=== PATIENT | male | born 1975 | race Caucasian/White ===

== ENCOUNTER → 2017-03-17 | Day surgery (SDC) | payer OTHER ==
[~2017-03-17] MED LIST: Acetaminophen/oxyCODONE 325-5 MG Tab PO PRN; Clindamycin Phosphate 900 MG in Dextrose 5% in Water 100 ML IV ONE; Clindamycin Phosphate 900 MG in Sodium Chloride 0.9% 100 ML IV ONE; Dexamethasone 4 MG/ML 5 ML MDV ONE; Doxycycline 100 MG Cap PO ONE; Famotidine 20 MG/2 ML SDV IVPUSH ONE; HYDROmorphone 0.5 MG/0.5 ML Syringe IVPUSH PRN; HYDROmorphone 1 MG/ML Syringe IVPUSH ONE; HYDROmorphone 1 MG/ML Syringe ONE; Haloperidol Lactate 5 MG/ML SDV IVPUSH ONE; Iodine/Sodium Iodide 2% Tincture 30 ML Bottle ONE; Ketorolac 30 MG/ML SDV IVPUSH PRN; Lidocaine 1% 4 ML ONE; Metoclopramide 10 MG/2 ML SDV IVPUSH ONE; Midazolam 1 MG/ML 2 ML SDV ONE; Morphine 15 MG Tab.ER PO ONE; Morphine 15 MG Tab.ER PO SCH; Ondansetron 4 MG/2 ML SDV IVPUSH PRN; Ondansetron 4 MG/2 ML SDV ONE; Propofol 200 MG/20 ML SDV ONE; Sodium Chloride 0.9% 1,000 ML IV SCH; Succinylcholine 200 MG/10 ML MDV ONE; ceFAZolin 1 GM Vial ONE; cefTRIAXone 2 GM in Sodium Chloride 0.9% 100 ML IV ONE; fentaNYL 100 MCG/2 ML SDV ONE
--- NOTE | 2017-03-17 10:35 | EDM.PDOC ---
ED HPI GENERAL MEDICAL PROBLEM - General Chief Complaint: Upper Extremity Injury/Pain Stated Complaint: STICK UNDER SKIN OF HAND/SWELLING Time Seen by Provider: 03/17/17 10:34 Source of Information: Reports: Patient History Limitations: Reports: No Limitations - History of Present Illness INITIAL COMMENTS - FREE TEXT/NARRATIVE: 41-year-old male reports to the ED with marked swelling and pain in his right hand over the thenar eminence. He reports that she's been out camping. States he stepped on a twig was able to get that out of his foot. He then fell forwards onto branches and legs with a puncture wound to the volar aspect of the thenar eminence right hand. Socially the areas become markedly swollen with erythema now spreading up the hand to towards his axilla. Is there may be a foreign body embedded in his thenar eminence. He has no systemic signs of illness such as fever chills nausea or vomiting. Pain in his hand is constant and throbbing. Patient states he has no allergies. His tetanus toxoid is up-to- date. Onset: Sudden (J occurred over 48 hours ago.) Onset Date: 03/15/17 Duration: Day(s): Location: Reports: Upper Extremity, Right (Primary thenar eminence of his right hand with a puncture wound mid thenar eminence with development of cellulitis lymphangitis right hand. This cellulitis is traveling up towards his left axilla.) Quality: Reports: Ache, Throbbing Severity: Moderate Improves with: Reports: None Worsens with: Reports: Other (Symptoms of worsened overnight with increased swelling of the thenar eminence and now red streaks going up the volar aspect of his arm to the axilla.) Context: Reports: Trauma (Tripped and fell on sharp objects which included pine needle branches and tree branches.) Associated Symptoms: Reports: No Other Symptoms, Other (He has some other aches and pains in his left ribs from falling out of a boat onto a concrete pier. He did not wish to have those problems addressed at this time) Treatments CREDIT REPORT CHECKER: Reports: Other (see below) Right Hand Pain Score (Numeric/FACES): 9 - Related Data Allergies Allergy/AdvReac Type Severity Reaction Status Date / Time No Known Allergies Allergy Verified 08/23/16 07:50 Home Meds: Home Meds . [No Known Home Meds] 03/17/17 [History] Past Medical History Cardiovascular History: Reports: Hypertension Respiratory History: Reports: Bronchitis, Recurrent Musculoskeletal History: Reports: Fracture Psychiatric History: Reports: Anxiety, Depression Other Dermatologic History: Current rash - Infectious Disease History Infectious Disease History: Reports: Chicken Pox - Past Surgical History HEENT Surgical History: Reports: Eye Surgery Social & Family History - Family History Family Medical History: Noncontributory - Tobacco Use Smoking Status *Q: Light Tobacco Smoker Years of Tobacco use: 30 Packs/Tins Daily: 1 - Caffeine Use Caffeine Use: Reports: Energy Drinks - Recreational Drug Use Recreational Drug Use: No - Living Situation & Occupation Occupation: Employed Review of Systems - Review of Systems Review Of Systems: See Below Constitutional: Denies: Chills, Diaphoresis, Fever, Weakness, Other Eyes: Reports: No Symptoms Ears: Reports: No Symptoms Nose: Reports: No Symptoms Mouth/Throat: Reports: No Symptoms Respiratory: Reports: No Symptoms Cardiovascular: Reports: No Symptoms GI/Abdominal: Reports: No Symptoms Genitourinary: Reports: No Symptoms Musculoskeletal: Reports: Other (Swelling and development of lymphangitis cellulitis ) Skin: Reports: Other (Erythema swelling and pain thenar eminence right hand with lymphangitis erythema spreading up the volar aspect of his forearm and arm towards the axilla.) Neurological: Reports: No Symptoms Psychiatric: Reports: No Symptoms ED EXAM, GENERAL - Physical Exam Exam: See Below Exam Limited By: No Limitations General Appearance: Alert, WD/WN, No Apparent Distress Eye Exam: Bilateral Eye: Normal Inspection Peripheral Pulses: 3+: Radial (L), Radial (R) Extremities: Other (Patient has a single puncture wound mid thenar eminence volar hand on the right side. The thenar eminence itself is taught with swelling and is tender and warm to palpation. There is erythema spreading from the thenar eminence of the volar aspect of the arm towards the axilla. He does travel up the medial arm.) Neurological: Alert ( He denies any systemic symptoms.), Oriented, CN II-XII Intact, Normal Cognition Psychiatric: Normal Affect, Normal Mood Skin Exam: Warm, Dry, Intact, Normal Color, Erythema Course - Vital Signs Last Recorded V/S: Last Vital Signs Temp 36.9 C 03/17/17 18:30 Pulse 88 03/17/17 18:30 Resp 11 L 03/17/17 18:30 BP 143/103 H 03/17/17 18:30 Pulse Ox 95 03/17/17 18:30 - Orders/Labs/Meds Orders: Active Orders 24 hr Category Date Time Status Admission Status [Patient Status] [ADT] Routine ADT 03/17/17 15:02 Active Communication Order [RC] ASDIRECTED Care 03/17/17 15:28 Active Communication Order [RC] ROUTINE Care 03/17/17 16:40 Active Cooling Warming Measures [RC] ASDIRECTED Care 03/17/17 16:40 Active Elevate Extremity [RC] CONTINUOUS Care 03/17/17 15:28 Active Head of Bed Elevation [RC] ASDIRECTED Care 03/17/17 15:28 Active Notify Provider [RC] ASDIRECTED Care 03/17/17 16:40 Active Oxygen Therapy [RC] ASDIRECTED Care 03/17/17 16:40 Active Pulse Oximetry [RC] ASDIRECTED Care 03/17/17 16:40 Active Ready for Discharge [RC] PER UNIT ROUTINE Care 03/17/17 15:37 Active Turn, Cough, Deep Breathe [RC] .PRN Care 03/17/17 15:28 Active Vital Signs [RC] PER UNIT ROUTINE Care 03/17/17 15:28 Active Vital Signs [RC] Q15M Care 03/17/17 16:40 Active Hand wo Cont Rt [CT] Stat Exams 03/17/17 10:39 Taken CULTURE ANAEROBIC + SMEAR [RM] Urgent Lab 03/17/17 15:55 Received CULTURE BLOOD [BC] Stat Lab 03/17/17 11:05 Received CULTURE BLOOD [BC] Stat Lab 03/17/17 11:15 Received Acetaminophen/oxyCODONE [Percocet 325-5 MG] Med 03/17/17 15:34 Active 1 - 2 tab PO Q4H PRN HYDROmorphone [Dilaudid] Med 03/17/17 15:34 Active 0.5 mg IVPUSH Q2H PRN Ketorolac [Toradol] Med 03/17/17 15:34 Active 30 mg IVPUSH Q6H PRN Lactated Ringers [Ringers, Lactated] 1,000 ml Med 03/17/17 19:15 Active IV ASDIRECTED Ondansetron [Zofran] Med 03/17/17 16:40 Active 4 mg IVPUSH ONETIME PRN Ondansetron [Zofran] Med 03/17/17 15:34 Active 4 mg IVPUSH Q4H PRN Sodium Chloride 0.9% [Normal Saline] 1,000 ml Med 03/17/17 10:45 Active IV ASDIRECTED fentaNYL [Sublimaze] Med 03/17/17 16:40 Active 50 mcg IVPUSH Q5M PRN Blood Culture x2 Reflex Set [OM.PC] Stat Ot 03/17/17 10:43 Ordered Ice Therapy [OM.PC] Routine Oth 03/17/17 15:28 Ordered Schedule Procedure [COMM] Stat Ot 03/17/17 15:23 Ordered Medication Orders Fentanyl (Sublimaze) 50 mcg IVPUSH Q5M PRN PRN Reason: Pain Last Admin: 03/17/17 17:30 Dose: 50 mcg Admin: 03/17/17 17:05 Dose: 50 mcg Hydromorphone HCl (Dilaudid) 0.5 mg IVPUSH Q2H PRN PRN Reason: Pain (severe 7-10) Sodium Chloride (Normal Saline) 1,000 mls @ 125 mls/hr IV ASDIRECTED [facility] Last Admin: 03/17/17 11:01 Dose: 125 mls/hr Lactated Ringer's (Ringers, Lactated) 1,000 mls @ 125 mls/hr IV ASDIRECTED [facility] Last Admin: 03/17/17 19:35 Dose: 125 mls/hr Infusion: 03/17/17 18:35 Dose: 125 mls/hr Admin: 03/17/17 15:31 Dose: 125 mls/hr Ketorolac Tromethamine (Toradol) 30 mg IVPUSH Q6H PRN PRN Reason: Pain (severe 7-10) Last Admin: 03/17/17 16:40 Dose: 30 mg Ondansetron HCl (Zofran) 4 mg IVPUSH Q4H PRN PRN Reason: Nausea/Vomiting Ondansetron HCl (Zofran) 4 mg IVPUSH ONETIME PRN PRN Reason: Nausea/Vomiting Oxycodone/Acetaminophen (Percocet 325-5 Mg) 1 - 2 tab PO Q4H PRN PRN Reason: Pain (severe 7-10) Last Admin: 03/17/17 18:00 Dose: 2 tab Labs: Laboratory Tests 03/17/17 03/17/17 03/17/17 Range/Units 10:35 10:35 10:35 WBC 8.23 (4.23-9.07) K/mm3 RBC 4.96 (4.63-6.08) M/mm3 Hgb 16.3 (13.7-17.5) gm/L Hct 46.6 (40.1-51.0) % MCV 94.0 H (79.0-92.2) fl MCH 32.9 H (25.7-32.2) pg MCHC 35.0 (32.2-35.5) g/dl RDW Std Deviation 41.9 (35.1-43.9) fL Plt Count 239 (163-337) K/mm3 MPV 10.1 (9.4-12.3) fl Neutrophils % (Manual) 58 (40-60) % Band Neutrophils % 0 (0-10) % Lymphocytes % (Manual) 22 (20-40) % Atypical Lymphs % 0 % Monocytes % (Manual) 14 H (2-10) % Eosinophils % (Manual) 5 (0.8-7.0) % Basophils % (Manual) 1 (0.2-1.2) Platelet Estimate Adequate Plt Morphology Comment See note RBC Morph Comment Normal Sodium 142 (136-145) mEq/L Potassium 3.8 (3.5-5.1) mEq/L Chloride 106 (98-107) mEq/L Carbon Dioxide 25 (21-32) mEq/L Anion Gap 14.8 (5-15) BUN 11 (7-18) mg/dL Creatinine 0.9 (0.7-1.3) mg/dL Est Cr Clr Drug Dosing 117.36 mL/min Estimated GFR (MDRD) > 60 (>60) mL/min BUN/Creatinine Ratio 12.2 L (14-18) Glucose 113 H (74-106) mg/dL Calcium 8.7 (8.5-10.1) mg/dL Total Bilirubin 1.1 H (0.2-1.0) mg/dL AST 38 H (15-37) U/L ALT 33 (16-63) U/L Alkaline Phosphatase 69 (46-116) U/L C-Reactive Protein 1.1 H* (<1.0) mg/dL Total Protein 7.5 (6.4-8.2) g/dl Albumin 3.8 (3.4-5.0) g/dl Globulin 3.7 gm/dL Albumin/Globulin Ratio 1.0 (1-2) Ethyl Alcohol 0.12 (0.00) gm% Meds: Medications Generic Name Dose Route Start Last Admin Trade Name Donnie PRN Reason Stop Dose Admin Fentanyl 50 mcg 03/17/17 16:40 03/17/17 17:30 Sublimaze IVPUSH 50 mcg Q5M PRN Administration Pain Hydromorphone HCl 0.5 mg 03/17/17 15:34 Dilaudid IVPUSH Q2H PRN Pain (severe 7-10) Sodium Chloride 1,000 mls @ 125 mls/hr 03/17/17 10:45 03/17/17 11:01 Normal Saline IV 125 mls/hr ASDIRECTED IVETH Administration Lactated Ringer's 1,000 mls @ 125 mls/hr 03/17/17 19:15 03/17/17 19:35 Ringers, Lactated IV 125 mls/hr ASDIRECTED IVETH Administration Ketorolac Tromethamine 30 mg 03/17/17 15:34 03/17/17 16:40 Toradol IVPUSH 30 mg Q6H PRN Administration Pain (severe 7-10) Ondansetron HCl 4 mg 03/17/17 15:34 Zofran IVPUSH Q4H PRN Nausea/Vomiting Ondansetron HCl 4 mg 03/17/17 16:40 Zofran IVPUSH ONETIME PRN Nausea/Vomiting Oxycodone/Acetaminophen 1 - 2 tab 03/17/17 15:34 03/17/17 18:00 Percocet 325-5 Mg PO 2 tab Q4H PRN Administration Pain (severe 7-10) Discontinued Medications Generic Name Dose Route Start Last Admin Trade Name Donnie PRN Reason Stop Dose Admin Cefazolin Sodium Confirm 03/17/17 16:13 Ancef Administered 03/17/17 16:14 Dose 1 gm .ROUTE .STK-MED ONE Cefazolin Sodium Confirm 03/17/17 16:13 Ancef Administered 03/17/17 16:14 Dose 1 gm .ROUTE .STK-MED ONE Dexamethasone Confirm 03/17/17 14:42 Dexamethasone Administered 03/17/17 14:43 Dose 20 mg .ROUTE .STK-MED ONE Doxycycline Hyclate 200 mg 03/17/17 10:48 03/17/17 11:03 Vibramycin PO 03/17/17 10:49 200 mg ONETIME ONE Administration Famotidine 20 mg 03/17/17 14:03 03/17/17 14:12 Pepcid IVPUSH 03/17/17 14:04 20 mg ONETIME ONE Administration Fentanyl Confirm 03/17/17 14:42 Sublimaze Administered 03/17/17 14:43 Dose 100 mcg .ROUTE .STK-MED ONE Haloperidol Lactate 1 mg 03/17/17 16:40 Haldol IVPUSH 03/17/17 16:41 ONETIME ONE Hydromorphone HCl 1 mg 03/17/17 11:51 03/17/17 12:00 Dilaudid IVPUSH 03/17/17 11:52 1 mg ONETIME ONE Administration Hydromorphone HCl Confirm 03/17/17 14:47 Dilaudid Administered 03/17/17 14:48 Dose 1 mg .ROUTE .STK-MED ONE Hydromorphone HCl 0.5 mg 03/17/17 16:40 03/17/17 17:15 Dilaudid IVPUSH 0.5 mg Q15M PRN Administration severe pain Clindamycin Phosphate 900 mg/ 106 mls @ 212 mls/hr 03/17/17 11:15 03/17/17 11 :05 Dextrose/Water IV 03/17/17 11:44 212 mls/hr ONETIME ONE Administration Lidocaine HCl Confirm 03/17/17 14:42 Xylocaine-Mpf 1% Administered 03/17/17 14:43 Dose 4 mls @ as directed .ROUTE .STK-MED ONE Ceftriaxone Sodium 2 gm/ 100 mls @ 200 mls/hr 03/17/17 15:34 03/17/17 17:25 Sodium Chloride IV 03/17/17 16:03 200 mls/hr ONETIME ONE Administration Iodine Confirm 03/17/17 14:52 03/17/17 15:53 Iodine 2% Mild Tincture Administered 03/17/17 14:53 9 ml Dose Administration 30 ml .ROUTE .STK-MED ONE Metoclopramide HCl 10 mg 03/17/17 11:51 03/17/17 12:00 Reglan IVPUSH 03/17/17 11:52 10 mg ONETIME ONE Administration Midazolam HCl Confirm 03/17/17 14:43 Versed 1 Mg/Ml Administered 03/17/17 14:44 Dose 2 mg .ROUTE .STK-MED ONE Morphine Sulfate 15 mg 03/17/17 15:45 03/17/17 17:00 Ms Contin PO 03/17/17 15:46 15 mg ONETIME ONE Administration Ondansetron HCl Confirm 03/17/17 14:42 Zofran Administered 03/17/17 14:43 Dose 4 mg .ROUTE .STK-MED ONE Propofol Confirm 03/17/17 14:42 Diprivan 20 Ml Administered 03/17/17 14:43 Dose 200 mg .ROUTE .STK-MED ONE Propofol Confirm 03/17/17 14:47 Diprivan 20 Ml Administered 03/17/17 14:48 Dose 200 mg .ROUTE .STK-MED ONE Succinylcholine Chloride Confirm 03/17/17 14:42 Quelicin Administered 03/17/17 14:43 Dose 200 mg .ROUTE .STK-MED ONE - Radiology Interpretation Free Text/Narrative:: 41-year-old male presents to the ED with the puncture wound to the thenar eminence of his right hand with secondary infection development of a developing lymphangitis cellulitis volar forearm going up to his axilla. Question is whether or not there is a retained foreign body within the thenar eminence. I can't feel any obvious foreign body in the area so swollen you can hardly feel anything. I will therefore have CT of this area performed. May simply be secondary infection development from the puncture wound. Will give him clindamycin 900 mg IV as well as doxycycline [address] had to be done. Routine labs to include blood cultures 2. - Re-Assessments/Exams Free Text/Narrative Re-Assessment/Exam: 03/17/17 11:52 CT of his hand reveals a foreign body in the lateral thenar musculature measuring 11.9 x 3.9 x 2.9 mm. It's at the transverse level of the proximal epiphysis of the first metacarpal bone. The most superficial part is partially 6 mm deep to the skin surface. Therefore I did speak with Dr. Khan horizontal boring mill set up operator orthopedic surgeon as I believe this should probably be attempted to be removed under general anesthetic versus attempt at local anesthetic or light sedation. This may not be that easy to find . Dr. Khan is in agreement and will take him to the operative room tentatively after the clinic is finished today. This will be around 1700 hrs. Patient is having pain in his hand and therefore I did give him Dilaudid 1 mg IV with Reglan 10 mg IV. 03/17/17 12:50 labs reveal a normal white count at 8.23 with 50% neutrophils and no bands reported. Hemoglobin is 16.3 hematocrit is 46.6. Note MCV is mildly elevated at 94. Platelets are 239,000. Sodium 142 potassium 3.8. Chloride 106 bicarbonate 25. Anion gap is 14.8. CRP is 1.1. Bilirubin is mildly elevated 1.1. AST is 38. My impression is this fellow does drink a fair amount of alcohol. His hand pain has settled a bit after Dilaudid 1 mg IV. He has soaked his hand for half an hour in 10% betadine solution with a little bit of soap. 03/17/17 19:47 Departure - Departure Time of Disposition: 15:25 Disposition: DC/Tfer to [facility] Condition: Fair Clinical Impression: Cellulitis of right hand, Acute lymphangitis of right axilla, Foreign body hand -infection - Discharge Information - My Orders Last 24 Hours: My Active Orders 03/17/17 10:39 Hand wo Cont Rt [CT] Stat 03/17/17 10:43 Blood Culture x2 Reflex Set [OM.PC] Stat 03/17/17 10:45 Sodium Chloride 0.9% [Normal Saline] 1,000 ml IV ASDIRECTED 03/17/17 11:05 CULTURE BLOOD [BC] Stat 03/17/17 11:15 CULTURE BLOOD [BC] Stat - Assessment/Plan Last 24 Hours: My Active Orders 03/17/17 10:39 Hand wo Cont Rt [CT] Stat 03/17/17 10:43 Blood Culture x2 Reflex Set [OM.PC] Stat 03/17/17 10:45 Sodium Chloride 0.9% [Normal Saline] 1,000 ml IV ASDIRECTED 03/17/17 11:05 CULTURE BLOOD [BC] Stat 03/17/17 11:15 CULTURE BLOOD [BC] Stat
--- NOTE | 2017-03-17 13:58 | PCM.PREANE ---
Preanesthetic Assessment - Anesthesia/Transfusion/Family Hx Anesthesia History: Prior Anesthesia Without Reaction Family History of Anesthesia Reaction: No - Review of Systems General: No Symptoms Pulmonary: Shortness of Breath (Pain when he take a deep breath on the right side. ) Cardiovascular: No Symptoms Gastrointestinal: No Symptoms (Heart burn with spicy food) Neurological: No Symptoms Other: Reports: Liver Problems (Previous Hepatitis C infection ), Depression, Anxiety - Physical Assessment NPO Status Date: 03/17/17 NPO Status Time: 09:00 O2 Sat by Pulse Oximetry: 97 Respiratory Rate: 20 Vital Signs: Last Vital Signs Temp 36.8 C 03/17/17 10:32 Pulse 93 03/17/17 13:30 Resp 20 03/17/17 10:32 BP 124/65 03/17/17 13:30 Pulse Ox 97 03/17/17 13:30 Height: 1.83 m Weight: 86.183 kg ASA Class: 2E Mental Status: Alert & Oriented x3 Airway Class: Mallampati = 1 Dentition: Reports: Normal Dentition Thyro-Mental Finger Breadths: 3 Mouth Opening Finger Breadths: 3 ROM/Head Extension: Full Lungs: Clear to Auscultation, Normal Respiratory Effort Cardiovascular: Regular Rate, Regular Rhythm - Lab Values: Laboratory Last Values WBC 8.23 K/mm3 (4.23-9.07) 03/17/17 10:35 RBC 4.96 M/mm3 (4.63-6.08) 03/17/17 10:35 Hgb 16.3 gm/L (13.7-17.5) 03/17/17 10:35 Hct 46.6 % (40.1-51.0) 03/17/17 10:35 MCV 94.0 fl (79.0-92.2) H 03/17/17 10:35 MCH 32.9 pg (25.7-32.2) H 03/17/17 10:35 MCHC 35.0 g/dl (32.2-35.5) 03/17/17 10:35 RDW Std Deviation 41.9 fL (35.1-43.9) 03/17/17 10:35 Plt Count 239 K/mm3 (163-337) 03/17/17 10:35 MPV 10.1 fl (9.4-12.3) 03/17/17 10:35 Neutrophils % (Manual) 58 % (40-60) 03/17/17 10:35 Band Neutrophils % 0 % (0-10) 03/17/17 10:35 Lymphocytes % (Manual) 22 % (20-40) 03/17/17 10:35 Atypical Lymphs % 0 % 03/17/17 10:35 Monocytes % (Manual) 14 % (2-10) H 03/17/17 10:35 Eosinophils % (Manual) 5 % (0.8-7.0) 03/17/17 10:35 Basophils % (Manual) 1 (0.2-1.2) 03/17/17 10:35 Platelet Estimate Adequate 03/17/17 10:35 Plt Morphology Comment See note 03/17/17 10:35 RBC Morph Comment Normal 03/17/17 10:35 Sodium 142 mEq/L (136-145) 03/17/17 10:35 Potassium 3.8 mEq/L (3.5-5.1) 03/17/17 10:35 Chloride 106 mEq/L (98-107) 03/17/17 10:35 Carbon Dioxide 25 mEq/L (21-32) 03/17/17 10:35 Anion Gap 14.8 (5-15) 03/17/17 10:35 BUN 11 mg/dL (7-18) 03/17/17 10:35 Creatinine 0.9 mg/dL (0.7-1.3) 03/17/17 10:35 Est Cr Clr Drug Dosing 117.36 mL/min 03/17/17 10:35 Estimated GFR (MDRD) > 60 mL/min (>60) 03/17/17 10:35 BUN/Creatinine Ratio 12.2 (14-18) L 03/17/17 10:35 Glucose 113 mg/dL (74-106) H 03/17/17 10:35 Calcium 8.7 mg/dL (8.5-10.1) 03/17/17 10:35 Total Bilirubin 1.1 mg/dL (0.2-1.0) H 03/17/17 10:35 AST 38 U/L (15-37) H 03/17/17 10:35 ALT 33 U/L (16-63) 03/17/17 10:35 Alkaline Phosphatase 69 U/L (46-116) 03/17/17 10:35 C-Reactive Protein 1.1 mg/dL (<1.0) H* 03/17/17 10:35 Total Protein 7.5 g/dl (6.4-8.2) 03/17/17 10:35 Albumin 3.8 g/dl (3.4-5.0) 03/17/17 10:35 Globulin 3.7 gm/dL 03/17/17 10:35 Albumin/Globulin Ratio 1.0 (1-2) 03/17/17 10:35 - Allergies Allergies/Adverse Reactions: Allergies Allergy/AdvReac Type Severity Reaction Status Date / Time No Known Allergies Allergy Verified 08/23/16 07:50 - Anesthesia Plan Pre-Op Medication Ordered: Antacids - Acknowledgements Anesthesia Type Planned: General Anesthesia Pt an Appropriate Candidate for the Planned Anesthesia: Yes Alternatives and Risks of Anesthesia Discussed w Pt/Guardian: Yes Pt/Guardian Understands and Agrees with Anesthesia Plan: Yes PreAnesthesia Questionnaire Cardiovascular History: Reports: Hypertension Respiratory History: Reports: Bronchitis, Recurrent Musculoskeletal History: Reports: Fracture Psychiatric History: Reports: Anxiety, Depression Other Dermatologic History: Current rash - Infectious Disease History Infectious Disease History: Reports: Chicken Pox - Past Surgical History HEENT Surgical History: Reports: Eye Surgery - History Comment History Comment: States he used to take a high blood pressure medications, but stopped taking it because he ran out. - SUBSTANCE USE Smoking Status *Q: Light Tobacco Smoker Tobacco Use Within Last Twelve Months: Cigarettes, Smokeless Tobacco ( Cigarettes on ocassion socially. Chewing tobacco daily use.) Days Per Week of Alcohol Use: 7 Number of Drinks Per Day: 3 Total Drinks Per Week: 21 Date of Last Drink: 03/17/17 Time of Last Drink: 09:00 Recreational Drug Use History: No - HOME MEDS Home Medications: Home Meds . [No Known Home Meds] 03/17/17 [History] - CURRENT (IN HOUSE) MEDS Current Meds: Current Medications Sodium Chloride (Normal Saline) 1,000 mls @ 125 mls/hr IV ASDIRECTED IVETH Last Admin: 03/17/17 11:01 Dose: 125 mls/hr Discontinued Medications Doxycycline Hyclate (Vibramycin) 200 mg PO ONETIME ONE Stop: 03/17/17 10:49 Last Admin: 03/17/17 11:03 Dose: 200 mg Hydromorphone HCl (Dilaudid) 1 mg IVPUSH ONETIME ONE Stop: 03/17/17 11:52 Last Admin: 03/17/17 12:00 Dose: 1 mg Clindamycin Phosphate 900 mg/ (Dextrose/Water) 106 mls @ 212 mls/hr IV ONETIME ONE Stop: 03/17/17 11:44 Last Admin: 03/17/17 11:05 Dose: 212 mls/hr Metoclopramide HCl (Reglan) 10 mg IVPUSH ONETIME ONE Stop: 03/17/17 11:52 Last Admin: 03/17/17 12:00 Dose: 10 mg
[2017-03-17] MEDS: Lactated Ringers 1,000 ML IV SCH ×2 (15:31→19:35)
[2017-03-17] MEDS: HYDROmorphone 0.5 MG/0.5 ML Syringe IVPUSH PRN ×2 (16:45→17:15)
[2017-03-17] MEDS: fentaNYL 100 MCG/2 ML SDV IVPUSH PRN ×2 (17:05→17:30)
--- NOTE | 2017-03-17 18:11 | PCM48HPAN ---
Post Anesthesia Note - EVALUATION WITHIN 48HRS OF ANESTHETIC Vital Signs in Normal Range: Yes (BP at baseline from admission. ) Patient Participated in Evaluation: Yes Respiratory Function Stable: Yes Airway Patent: Yes Cardiovascular Function Stable: Yes Hydration Status Stable: Yes Pain Control Satisfactory: Yes (States he is wanting to go home. Pain is acceptable. ) Nausea and Vomiting Control Satisfactory: Yes Mental Status Recovered: Yes
[2017-03-17 19:17] VITALS: BP 143/103
--- NOTE | 2017-03-17 20:50 | HP ---
DATE OF ADMISSION: 03/17/2017 HISTORY: This is the first orthopedic outpatient admission for this 41-year-old male, who is being admitted from the emergency room for an irrigation, debridement, and removal foreign body of right hand with cellulitis. The patient has suffered a fall on March 15. He tried to treat the area of a puncture wound in the right hand on his own. He developed increasing pain and redness about the wound area, presented to the emergency room on March 17, 2017, and was found to have significant cellulitis and localized infection in and around the thenar eminence of the right hand. The patient also underwent a CT scan which showed a foreign body formation in the muscle structure of the thenar eminence of the right hand and after evaluation in the emergency room, the patient is now being scheduled for an outpatient irrigation, debridement, and removal foreign body of the puncture wound of the right hand. The procedure was discussed with the patient. He understands that and has consented to the surgery. ALLERGIES: No known drug allergies. PAST MEDICAL HISTORY: He has been a relatively healthy 41-year-old male. CURRENT MEDICATIONS: Currently on no medications at the time of evaluation. PAST SURGICAL HISTORY: Positive. He has had no anesthesia problems or complications. REVIEW OF SYSTEMS: The patient is a nonsmoker, but he does chew tobacco, chews 3-4 times a day. Alcohol is daily use of a beer and occasional whiskey. The patient denies any bleeding history or blood clot formation. PHYSICAL EXAMINATION: GENERAL: Reveals a well-developed, well-nourished 41-year-old male in moderate- to-severe distress. HEAD, EYES, EARS, NOSE, AND THROAT: Normocephalic. NECK: Supple. CHEST: Clear. COR: Regular rate. ABDOMEN: Soft. : Intact. EXTREMITIES: Examination of the right hand reveals positive puncture wound to the thenar eminence of the right hand with significant cellulitis, swelling, and erythema extending up into his forearm area. RADIOLOGY: CT scan shows positive foreign body formation in the thenar eminence of the right hand. ASSESSMENT: Foreign body with cellulitis, right hand. PLAN: Plan is for the patient to undergo an irrigation, debridement, and foreign body removal and treatment of the cellulitis. The procedure again was outlined to the patient. He understands the procedure and has consented to it. MMODAL /[id number]
--- NOTE | 2017-03-18 09:44 | OR ---
DATE OF OPERATION: 03/17/2017 SURGEON: Mike Khan MD PREOPERATIVE DIAGNOSIS: Acute cellulitis with puncture wound foreign body, right thenar eminence of hand. POSTOPERATIVE DIAGNOSIS: Acute cellulitis with puncture wound foreign body, right thenar eminence of hand. ANESTHESIA: General. OPERATION PERFORMED: 1. Incision and drainage of puncture wound site, thenar eminence, right hand. 2. Removal of foreign body and deep muscular tissues, thenar eminence, right hand. 3. Culture and sensitivity of pus material of thenar eminence, right hand. DESCRIPTION OF PROCEDURE: The patient was taken to the operating room in supine position and placed under general anesthesia. The right arm and extremity was prepped and draped by standard technique, and after prepping and draping, the operation began with evaluation of the puncture wound that was present on the thenar eminence of the right hand and gentle pressure could not identify any firm object in the deeper tissues. Approximately a 0.5 cm incision was placed centered over the puncture wound itself penetrating through the skin to the subcutaneous tissues and then these were bluntly dissected, which immediately exposed pus type exudate. Cultures and sensitivities were taken and the operation was proceeded with further exploration very gently and slowly. Irrigation was then used to clean out the pus material from the wound area and then by gentle squeezing the track of pus was identified and this was developed and followed until the wedge shape piece of wood was identified in the thenar eminence. This was removed in a retrograde fashion and was approximately 1.5 to 2 cm in length by 0.5 cm in width. The area was then gently probed and thoroughly irrigated, then reinspected to make sure no foreign bodies remained. There was definitely necrosis of the muscular tissue in the area of the foreign body. This was debrided out and then the operation proceeded again with irrigation with the iodine solution and then the remainder portion of the wound was then irrigated with half peroxide and half water in the area using angiocatheter for the irrigation. Approximately, 20 mL of peroxide and water was used. Once that was completed, the operation proceeded then with re-irrigation of the iodine solution and again just inspection, probing, and re-irrigation. Copious irrigation was used, and once that was finally satisfied where good healthy tissue remained, even in the deep tissues and pressure through all area did not expose or produce any more pus type material or other foreign body, the wound was then packed with iodoform gauze quarter-inch and then the patient was placed in standard dressings and splint. He tolerated the procedure well. He left the operating room in stable condition to his room for recovery to maintain elevation of his hand. ESTIMATED BLOOD LOSS: [id number] /[id number]
--- NOTE | 2017-03-18 09:44 | CONS ---
CONSULTING PHYSICIAN: Mike Khan MD DATE OF CONSULTATION: 03/17/2017 REASON FOR CONSULTATION: Orthopedic consultation called for by Dr. Kingsley for evaluation of foreign body, right hand. HISTORY: A 41-year-old male who has suffered injury to the right hand secondary to a fall, felt he had suffered a puncture wound with a piece of wood going into the area of the right thumb thenar eminence region. This was on 03/15/2017. The patient notes that he tried to remove whatever was there in the puncture wound area. He continued on his activity levels developing increasing pain, swelling, and redness, presented to the emergency room on 03/17/2017, was evaluated by Dr. Kingsley who was identified to have a foreign body in the palmar aspect of the right hand with cellulitis and orthopedic consultation was called for. The patient notes no fever, chills, or night sweats at this time. He has positive pain with any type of motion or movement of the thumb area. PHYSICAL EXAMINATION: Reveals a puncture wound of the thenar eminence area with significant cellulitis about the thenar eminence with swelling and positive redness going into his forearm region. LABORATORY DATA: The radiology CT scan was evaluated. This shows a foreign body formation in the thenar eminence area of the right hand thumb. IMPRESSION: Foreign body, right hand with cellulitis/infection. PLAN: Plan will be for the patient to be scheduled for an irrigation and debridement and removal of foreign body and started on IV antibiotics. The procedure has been outlined to him. He understands the procedure and has consented to the surgery in the emergency room. Also, a generalized description of postoperative care was given to him realizing that depending on what the cultures would show from surgery as far as the type of infection that is present in the hand area and the necessity for the use of antibiotics. He understands that and again has consented with the surgery. MAMIE /[id number]
--- NOTE | 2017-03-19 10:51 | CT ---
CT right hand Technique: Multiple axial sections were obtained through the right hand. Intravenous contrast not utilized. Reconstructed coronal and sagittal images were reviewed. Findings: Foreign body is projected within the thenar eminence of the hand at the level of the base of the first metacarpal. This has a length of around 1.2 cm in size. No acute bony abnormality is identified. Several soft tissue calcifications are seen near the base of the fourth metacarpal believed to be dystrophic and incidental. Impression: 1. Foreign body projected within the thenar eminence as described above. Diagnostic code #3 Agree with preliminary report issued by [facility] ([facility] preliminary report dictated on 03/17/17, 12:37 PM Central Time) [facility]
== END | disposition home or self-care (01) ==
LOC: JD.ED 10:24 → JD.SDS 14:08
PROVIDERS: ATTEND Specialist
DX: L03.113 Cellulitis of right upper limb (principal); S61.441A Puncture wound with foreign body of right hand, initial encounter; I10 Essential (primary) hypertension; F17.210 Nicotine dependence, cigarettes, uncomplicated; Z98.890 Other specified postprocedural states
CPT/HCPCS: 10121; 36415; 73200; 80053; 85025; 86140; 87040; 87075; 87205; 96361; 96365; 96375; 99285; A9270; G0480; J0330; J0690; J0696; J1100; J1170; J1885; J2250; J2405; J2765; J3010; J7030; J7040; J7060; J7120; 00400; 99284; J2704

== ENCOUNTER 2017-08-08 20:30 | Emergency (ER) | payer BC ==
[2017-08-08 20:41] VITALS: BP 170/117
[2017-08-08] MEDS ORDERED: Clindamycin HCl 150 MG Cap PO ONE (20:48)
[2017-08-08] MEDS ORDERED: Lidocaine 1% 10 ML MDV INJECT ONE (20:48)
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
== END 2017-08-08 22:15 | disposition home or self-care (01) ==
LOC: JD.ED 20:30
DX: S41.111A Laceration without foreign body of right upper arm, initial encounter (principal); S61.411A Laceration without foreign body of right hand, initial encounter; F10.129 Alcohol abuse with intoxication, unspecified; I10 Essential (primary) hypertension; F17.210 Nicotine dependence, cigarettes, uncomplicated; W22.8XXA Striking against or struck by other objects, initial encounter; Y92.009 Unspecified place in unspecified non-institutional (private) residence as the place of occurrence of the external cause
CPT/HCPCS: 12002; 99283; A9270; 12001

== ENCOUNTER 2017-08-16 15:13 | Emergency (ER) | payer BC ==
[2017-08-16 15:21] VITALS: BP 128/90
== END 2017-08-16 15:25 ==
LOC: JD.ED 15:13
DX: Z53.21 Procedure and treatment not carried out due to patient leaving prior to being seen by health care provider (principal)

== ENCOUNTER 2017-08-25 12:13 | Inpatient (IN) | payer BC ==
[2017-08-25] MEDS ORDERED: Ondansetron 4 MG/2 ML SDV IVPUSH ONE (13:43)
[2017-08-25] MEDS ORDERED: Sodium Chloride 0.9% 10 ML Syringe FLUSH PRN (13:43)
[2017-08-25] MEDS ORDERED: Sodium Chloride 0.9% 1,000 ML IV ONE ×3 (13:43→16:36)
[2017-08-25] MEDS ORDERED: Ketorolac 30 MG/ML SDV IVPUSH ONE (13:43)
[2017-08-25] MEDS ORDERED: LORazepam 2 MG/ML MDV IVPUSH ONE (14:41)
[2017-08-25] MEDS ORDERED: Famotidine 20 MG/2 ML SDV IVPUSH ONE (16:36)
[2017-08-25] MEDS ORDERED: Albuterol/Ipratropium 3.0-0.5 MG/3 ML Neb Soln NEB PRN (18:00)
[2017-08-25] MEDS ORDERED: Ondansetron 4 MG/2 ML SDV IV PRN (18:00)
[2017-08-25] MEDS ORDERED: Bisacodyl 5 MG Tab PO PRN (18:00)
[2017-08-25] MEDS ORDERED: Polyethylene Glycol 3350 Powder 17 GM Packet PO PRN (18:00)
[2017-08-25] MEDS ORDERED: Docusate Sodium 100 MG Cap PO PRN (18:00)
[2017-08-25] MEDS ORDERED: Pantoprazole 40 MG Vial ONE (18:00)
[2017-08-25] MEDS ORDERED: HYDROmorphone 1 MG/ML Syringe IVPUSH PRN (18:00)
[2017-08-25] MEDS ORDERED: Acetaminophen 325 MG Tab PO PRN (18:00)
[2017-08-25] MEDS ORDERED: Acetaminophen/HYDROcodone 325-5 MG Tab PO PRN (18:00)
[2017-08-25] MEDS ORDERED: Promethazine 12.5 MG in Sodium Chloride 0.9% 50 ML IV PRN (18:00)
[2017-08-25] MEDS ORDERED: cloNIDine 0.1 MG Tab PO PRN (18:02)
[2017-08-25] MEDS ORDERED: hydrALAZINE 20 MG/ML SDV IVPUSH PRN (18:06)
[2017-08-25] MEDS ORDERED: Metoprolol Tartrate 5 MG/5 ML SDV IVPUSH PRN (18:06)
[2017-08-25] MEDS ORDERED: LORazepam 2 MG/ML MDV IVPUSH PRN (18:06)
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
[2017-08-25] MEDS ORDERED: QUEtiapine 25 MG Tab PO ONE (18:13)
[2017-08-25] MEDS ORDERED: Topiramate 25 MG Tab PO STA (18:14)
[2017-08-25] MEDS ORDERED: Sodium Chloride 0.9% 50 ML ONE (18:34)
[2017-08-25] MEDS: Famotidine 20 MG Tab PO SCH (19:09)
[2017-08-25] MEDS: chlordiazePOXIDE 25 MG Cap PO PRN (19:35)
[2017-08-25] MEDS: Magnesium Oxide 400 MG Tab PO SCH ×2 (19:35→22:10)
[2017-08-25] MEDS ORDERED: Nicotine 21 MG/24 Hr Patch TRDERM ONE (19:51)
[2017-08-25] MEDS: Topiramate 25 MG Tab PO SCH (20:53)
[2017-08-25] MEDS: QUEtiapine 25 MG Tab PO SCH (20:53)
[2017-08-25] MEDS: LORazepam 2 MG/ML MDV IVPUSH PRN (20:57)
--- NOTE | 2017-08-26 00:06 | EDM.PDOCBH ---
ED HPI GENERAL MEDICAL PROBLEM - General Chief Complaint: Drug or Alcohol Abuse Stated Complaint: ALCOHOL DETOX Time Seen by Provider: 08/25/17 13:35 Source of Information: Reports: Patient History Limitations: Reports: Intoxication - History of Present Illness INITIAL COMMENTS - FREE TEXT/NARRATIVE: 42-year-old male presents for evaluation and treatment of detox. Patient presented to the clinic yesterday. He was referred to Nikhil Ellison. Nikhil Ellison has sent him over here for evaluation. Patient reports that he drinks a pint of whiskey and 6 to 12 beers per day. He has been drinking since the age of 10. He drinks daily. Last drink was around 2200 last night. Reports last time he was sober was approximately 4 years ago. He does not recall ever having any seizures, hallucinations or serious withdrawal symptoms. He states currently he is having headaches, nausea and vomiting. He states he can't hold down a water be can hold on alcohol. He is also having some diarrhea. States he is having trouble concentrating. He feels anxious and agitated. Reportedly the patient is from [place]. He moved to [place]. Does not have any family in [place]. He is not currently employed due to his alcohol abuse. - Related Data Allergies Allergy/AdvReac Type Severity Reaction Status Date / Time No Known Allergies Allergy Verified 08/25/17 19:33 Home Meds: Home Meds Lisinopril/Hydrochlorothiazide [Lisinopril-Hctz 20-12.5 mg Tab] 1 tab PO DAILY 08/25/17 [History] Past Medical History Cardiovascular History: Reports: Hypertension Respiratory History: Reports: Bronchitis, Recurrent Musculoskeletal History: Reports: Other (See Below) Other Musculoskeletal History: right thumb broken foreign object Psychiatric History: Reports: Anxiety, Depression Other Dermatologic History: Current rash - Infectious Disease History Infectious Disease History: Reports: Hepatitis C, Other (See Below) Other Infectious Disease History: states he does not have Hep C anymore - Past Surgical History HEENT Surgical History: Reports: Eye Surgery Cardiovascular Surgical History: Reports: None Respiratory Surgical History: Reports: None GI Surgical History: Reports: None Male Surgical History: Reports: None Musculoskeletal Surgical History: Reports: Other (See Below) Other Musculoskeletal Surgeries/Procedures:: foreign object removal to rigth thumb Dermatological Surgical History: Reports: None - History Comment History Comment: States he used to take a high blood pressure medications, but stopped taking it because he ran out. Social & Family History - Family History Family Medical History: Noncontributory - Tobacco Use Smoking Status *Q: Current Every Day Smoker Years of Tobacco use: 10 Packs/Tins Daily: 1 Used Tobacco, but Quit: No Second Hand Smoke Exposure: Yes - Caffeine Use Caffeine Use: Reports: None - Alcohol Use Days Per Week of Alcohol Use: 7 Number of Drinks Per Day: 1 Total Drinks Per Week: 7 Date of Last Drink: 08/24/17 Time of Last Drink: 22:30 - Recreational Drug Use Recreational Drug Use: Yes Drug Use in Last 12 Months: No Recreational Drug Type: Reports: Cocaine, Marijuana/Hashish, Methamphetamine Other Recreational Drug Type: tried drugs during high school years Recreational Drug Use Frequency: Not Used In Over 6 Months - Living Situation & Occupation Occupation: Employed ED ROS GENERAL - Review of Systems Review Of Systems: See Below Respiratory: Denies: Shortness of Breath Cardiovascular: Denies: Chest Pain GI/Abdominal: Reports: Diarrhea, Nausea, Vomiting. Denies: Hematemesis, Hematochezia, Melena Neurological: Reports: Headache. Denies: Seizure Psychiatric: Denies: Hallucinations ED EXAM, BEHAVIORAL HEALTH - Physical Exam Exam: See Below Exam Limited By: Intoxication General Appearance: Alert, WD/WN, No Apparent Distress Ears: Normal External Exam Nose: Normal Inspection Throat/Mouth: Normal Inspection, Normal Voice, No Airway Compromise Neck: Normal Inspection Respiratory/Chest: No Respiratory Distress, Lungs Clear, Normal Breath Sounds Cardiovascular: Normal Peripheral Pulses, Regular Rate, Rhythm, No Murmur GI/Abdominal: Normal Bowel Sounds, Soft, Tender (generalized) Neurological: Alert, Normal Mood/Affect, Normal Cognition Psychiatric: Alert, Normal Affect Skin Exam: Warm, Dry, Normal color COURSE, BEHAVIORAL HEALTH COMP - Course Vital Signs: Last Vital Signs Temp 36.9 C 08/25/17 22:00 Pulse 76 08/25/17 12:34 Resp 11 L 08/25/17 22:00 BP 144/92 H 08/25/17 22:00 Pulse Ox 97 08/25/17 22:00 Orders, Labs, Meds: Active Orders 24 hr Category Date Time Status CIWAA Assessment [RC] Q1HR Care 08/25/17 14:41 Active Sodium Chloride 0.9% [Normal Saline] 1,000 ml Med 08/25/17 16:36 Active IV ONETIME Sodium Chloride 0.9% [Saline Flush] Med 08/25/17 13:43 Active 10 ml FLUSH ASDIRECTED PRN Peripheral IV Insertion Adult [OM.PC] Routine Oth 08/25/17 13:43 Ordered Medication Orders Acetaminophen (Tylenol) 650 mg PO Q4H PRN PRN Reason: Pain (Mild 1-3)/fever Hydrocodone Bitart/Acetaminophen ([place] 325-5 Mg) 1 tab PO Q4H PRN PRN Reason: Pain (moderate 4-6) Albuterol/Ipratropium (Duoneb 3.0-0.5 Mg/3 Ml) 3 ml NEB Q4H PRN PRN Reason: Shortness Of Breath/wheezing Bisacodyl (Dulcolax) 5 mg PO DAILY PRN PRN Reason: Constipation Chlordiazepoxide HCl (Librium) 25 mg PO Q8H PRN PRN Reason: Withdrawal Symptoms Last Admin: 08/25/17 19:35 Dose: 25 mg Clonidine HCl (Catapres) 0.1 mg PO Q4H PRN PRN Reason: Agitation Docusate Sodium (Colace) 100 mg PO BID PRN PRN Reason: Constipation Famotidine (Pepcid) 20 mg PO Q12H [facility] Last Admin: 08/25/17 19:09 Dose: Folic Acid (Folic Acid) 1 mg PO DAILY [facility] Stop: 08/28/17 09:01 Hydralazine HCl (Apresoline) 20 mg IVPUSH Q4H PRN PRN Reason: Hypertension Hydrochlorothiazide (Hydrochlorothiazide) 12.5 mg PO DAILY [facility] Hydromorphone HCl (Dilaudid) 0.25 mg IVPUSH Q2H PRN PRN Reason: Pain (severe 7-10) Sodium Chloride (Normal Saline) 1,000 mls @ 100 mls/hr IV ONETIME ONE Stop: 08/26/17 02:35 Last Admin: 08/25/17 16:42 Dose: 100 mls/hr Promethazine HCl 12.5 mg/ (Sodium Chloride) 50.5 mls @ 100 mls/hr IV Q6H PRN PRN Reason: Nausea/Vomiting Lisinopril (Prinivil) 20 mg PO DAILY [facility] Lorazepam (Ativan) 0 mg IVPUSH Q4H PRN; Protocol PRN Reason: Withdrawal Symptoms Last Admin: 08/25/17 20:57 Dose: 1 mg Lorazepam (Ativan) 2 mg IVPUSH Q4H PRN PRN Reason: Seizures Magnesium Sulfate (Pharmacy To Dose - Magnesium Replacement) 1 dose .XX ASDIRECTED [facility] Metoprolol Tartrate (Lopressor) 5 mg IVPUSH Q4H PRN PRN Reason: Tachycardia Miscellaneous Information (Remove Patch) 1 ea TRDERM DAILY [facility] Multivitamins (Thera) 1 each PO DAILY [facility] Nicotine (Habitrol) 21 mg TRDERM DAILY [facility] Ondansetron HCl (Zofran) 4 mg IV Q4H PRN PRN Reason: Nausea/Vomiting Polyethylene Glycol (Miralax) 17 gm PO DAILY PRN PRN Reason: Constipation Potassium Chloride (Pharmacy To Dose - Potassium Replacement) 1 dose .XX ASDIRECTED [facility] Quetiapine Fumarate (Seroquel) 50 mg PO BEDTIME [facility] Last Admin: 08/25/17 20:53 Dose: 50 mg Senna/Docusate Sodium (Senna Plus) 1 tab PO BID PRN PRN Reason: Constipation Sodium Chloride (Saline Flush) 10 ml FLUSH ASDIRECTED PRN PRN Reason: Keep Vein Open Last Admin: 08/25/17 13:54 Dose: 10 ml Thiamine HCl (Vitamin B-1) 100 mg PO DAILY [facility] Topiramate (Topamax) 25 mg PO BID [facility] Last Admin: 08/25/17 20:53 Dose: 25 mg Laboratory Tests 08/25/17 08/25/17 08/25/17 Range/Units 12:50 12:50 12:50 WBC 4.09 L (4.23-9.07) K/mm3 RBC 4.79 (4.63-6.08) M/mm3 Hgb 16.3 (13.7-17.5) gm/L Hct 44.9 (40.1-51.0) % MCV 93.7 H (79.0-92.2) fl MCH 34.0 H (25.7-32.2) pg MCHC 36.3 H (32.2-35.5) g/dl RDW Std Deviation 42.3 (35.1-43.9) fL Plt Count 245 (163-337) K/mm3 MPV 10.0 (9.4-12.3) fl Neut % (Auto) 59.2 (34.0-67.9) % Lymph % (Auto) 27.1 (21.8-53.1) % [place] % (Auto) 12.5 H (5.3-12.2) % Eos % (Auto) 0.7 L (0.8-7.0) Baso % (Auto) 0.5 (0.1-1.2) % Neut # (Auto) 2.42 (1.78-5.38) K/mm3 Lymph # (Auto) 1.11 L (1.32-3.57) K/mm3 [place] # (Auto) 0.51 (0.30-0.82) K/mm3 Eos # (Auto) 0.03 L (0.04-0.54) K/mm3 Baso # (Auto) 0.02 (0.01-0.08) K/mm3 PT 10.7 (8.0-13.0) SECONDS INR 1.00 APTT 26 (22-36) SECONDS Sodium 139 (136-145) mEq/L Potassium 3.7 (3.5-5.1) mEq/L Chloride 101 (98-107) mEq/L Carbon Dioxide 24 (21-32) mEq/L Anion Gap 17.7 H (5-15) BUN 11 (7-18) mg/dL Creatinine 0.8 (0.7-1.3) mg/dL Est Cr Clr Drug Dosing 130.68 mL/min Estimated GFR (MDRD) > 60 (>60) mL/min BUN/Creatinine Ratio 13.8 L (14-18) Glucose 107 H (74-106) mg/dL Calcium 8.6 (8.5-10.1) mg/dL Magnesium 1.4 L (1.8-2.4) mg/dl Total Bilirubin 1.3 H (0.2-1.0) mg/dL AST 62 H (15-37) U/L ALT 66 H (16-63) U/L Alkaline Phosphatase 70 (46-116) U/L Total Protein 7.5 (6.4-8.2) g/dl Albumin 3.7 (3.4-5.0) g/dl Globulin 3.8 gm/dL Albumin/Globulin Ratio 1.0 (1-2) Urine Color (Yellow) Urine Appearance (Clear) Urine pH (5.0-8.0) Ur Specific [place] (1.005-1.030) Urine Protein (Negative) Urine Glucose (UA) (Negative) Urine Ketones (Negative) Urine Occult Blood (Negative) Urine Nitrite (Negative) Urine Bilirubin (Negative) Urine Urobilinogen (0.2-1.0) Ur Leukocyte Esterase (Negative) Urine RBC (0-5) /hpf Urine WBC (0-5) /hpf Ur Epithelial Cells (0-5) /hpf Urine Bacteria (FEW) /hpf Urine Mucus (FEW) /hpf Urine Opiates Screen (NEGATIVE) Ur Buprenorphine Scrn (NEGATIVE) Ur Oxycodone Screen (NEGATIVE) Urine Methadone Screen (NEGATIVE) Ur Propoxyphene Screen (NEGATIVE) Ur Barbiturates Screen (NEGATIVE) Ur Tricyclics Screen (NEGATIVE) Ur Phencyclidine Scrn (NEGATIVE) Ur Amphetamine Screen (NEGATIVE) U Methamphetamines Scrn (NEGATIVE) U Benzodiazepines Scrn (NEGATIVE) U Cocaine Metab Screen (NEGATIVE) U Marijuana (THC) Screen (NEGATIVE) Ethyl Alcohol 0.07 (0.00) gm% 08/25/17 08/25/17 Range/Units 13:50 13:50 WBC (4.23-9.07) K/mm3 RBC (4.63-6.08) M/mm3 Hgb (13.7-17.5) gm/L Hct (40.1-51.0) % MCV (79.0-92.2) fl MCH (25.7-32.2) pg MCHC (32.2-35.5) g/dl RDW Std Deviation (35.1-43.9) fL Plt Count (163-337) K/mm3 MPV (9.4-12.3) fl Neut % (Auto) (34.0-67.9) % Lymph % (Auto) (21.8-53.1) % [place] % (Auto) (5.3-12.2) % Eos % (Auto) (0.8-7.0) Baso % (Auto) (0.1-1.2) % Neut # (Auto) (1.78-5.38) K/mm3 Lymph # (Auto) (1.32-3.57) K/mm3 [place] # (Auto) (0.30-0.82) K/mm3 Eos # (Auto) (0.04-0.54) K/mm3 Baso # (Auto) (0.01-0.08) K/mm3 PT (8.0-13.0) SECONDS INR APTT (22-36) SECONDS Sodium (136-145) mEq/L Potassium (3.5-5.1) mEq/L Chloride (98-107) mEq/L Carbon Dioxide (21-32) mEq/L Anion Gap (5-15) BUN (7-18) mg/dL Creatinine (0.7-1.3) mg/dL Est Cr Clr Drug Dosing mL/min Estimated GFR (MDRD) (>60) mL/min BUN/Creatinine Ratio (14-18) Glucose (74-106) mg/dL Calcium (8.5-10.1) mg/dL Magnesium (1.8-2.4) mg/dl Total Bilirubin (0.2-1.0) mg/dL AST (15-37) U/L ALT (16-63) U/L Alkaline Phosphatase (46-116) U/L Total Protein (6.4-8.2) g/dl Albumin (3.4-5.0) g/dl Globulin gm/dL Albumin/Globulin Ratio (1-2) Urine Color Yellow (Yellow) Urine Appearance Clear (Clear) Urine pH 7.0 (5.0-8.0) Ur Specific [place] 1.025 (1.005-1.030) Urine Protein Negative (Negative) Urine Glucose (UA) Negative (Negative) Urine Ketones Negative (Negative) Urine Occult Blood Negative (Negative) Urine Nitrite Negative (Negative) Urine Bilirubin Negative (Negative) Urine Urobilinogen 0.2 (0.2-1.0) Ur Leukocyte Esterase Negative (Negative) Urine RBC 0-5 (0-5) /hpf Urine WBC 0-5 (0-5) /hpf Ur Epithelial Cells 0-5 (0-5) /hpf Urine Bacteria Few (FEW) /hpf Urine Mucus Not seen (FEW) /hpf Urine Opiates Screen Negative (NEGATIVE) Ur Buprenorphine Scrn Negative (NEGATIVE) Ur Oxycodone Screen Negative (NEGATIVE) Urine Methadone Screen Negative (NEGATIVE) Ur Propoxyphene Screen Negative (NEGATIVE) Ur Barbiturates Screen Negative (NEGATIVE) Ur Tricyclics Screen Negative (NEGATIVE) Ur Phencyclidine Scrn Negative (NEGATIVE) Ur Amphetamine Screen Negative (NEGATIVE) U Methamphetamines Scrn Negative (NEGATIVE) U Benzodiazepines Scrn Negative (NEGATIVE) U Cocaine Metab Screen Negative (NEGATIVE) U Marijuana (THC) Screen Negative (NEGATIVE) Ethyl Alcohol (0.00) gm% Medications Generic Name Dose Route Start Last Admin Trade Name Freq PRN Reason Stop Dose Admin Acetaminophen 650 mg 08/25/17 18:00 Tylenol PO Q4H PRN Pain (Mild 1-3)/fever Hydrocodone Bitart/Acetaminophen 1 tab 08/25/17 18:00 [place] 325-5 Mg PO Q4H PRN Pain (moderate 4-6) Albuterol/Ipratropium 3 ml 08/25/17 18:00 Duoneb 3.0-0.5 Mg/3 Ml NEB Q4H PRN Shortness Of Breath/wheezing Bisacodyl 5 mg 08/25/17 18:00 Dulcolax PO DAILY PRN Constipation Chlordiazepoxide HCl 25 mg 08/25/17 18:02 08/25/17 19:35 Librium PO 25 mg Q8H PRN Administration Withdrawal Symptoms Clonidine HCl 0.1 mg 08/25/17 18:02 Catapres PO Q4H PRN Agitation Docusate Sodium 100 mg 08/25/17 18:00 Colace PO BID PRN Constipation Famotidine 20 mg 08/25/17 18:15 08/25/17 19:09 Pepcid PO Not Given Q12H [facility] Folic Acid 1 mg 08/26/17 09:00 Folic Acid PO 08/28/17 09:01 DAILY [facility] Hydralazine HCl 20 mg 08/25/17 18:06 Apresoline IVPUSH Q4H PRN Hypertension Hydrochlorothiazide 12.5 mg 08/26/17 09:00 Hydrochlorothiazide PO DAILY [facility] Hydromorphone HCl 0.25 mg 08/25/17 18:00 Dilaudid IVPUSH Q2H PRN Pain (severe 7-10) Sodium Chloride 1,000 mls @ 100 mls/hr 08/25/17 16:36 08/25/17 16:42 Normal Saline IV 08/26/17 02:35 100 mls/hr ONETIME ONE Administration Promethazine HCl 12.5 mg/ 50.5 mls @ 100 mls/hr 08/25/17 18:00 Sodium Chloride IV Q6H PRN Nausea/Vomiting Lisinopril 20 mg 08/26/17 09:00 Prinivil PO DAILY [facility] Lorazepam 0 mg 08/25/17 18:06 08/25/17 20:57 Ativan IVPUSH 1 mg Q4H PRN Administration Withdrawal Symptoms Protocol Lorazepam 2 mg 08/25/17 18:06 Ativan IVPUSH Q4H PRN Seizures Magnesium Sulfate 1 dose 08/25/17 18:15 Pharmacy To Dose - Magnesium Replacement .XX ASDIRECTED [facility] Metoprolol Tartrate 5 mg 08/25/17 18:06 Lopressor IVPUSH Q4H PRN Tachycardia Miscellaneous Information 1 ea 08/26/17 09:00 Remove Patch TRDERM DAILY [facility] Multivitamins 1 each 08/26/17 09:00 Thera PO DAILY [facility] Nicotine 21 mg 08/26/17 09:00 Habitrol TRDERM DAILY [facility] Ondansetron HCl 4 mg 08/25/17 18:00 Zofran IV Q4H PRN Nausea/Vomiting Polyethylene Glycol 17 gm 08/25/17 18:00 Miralax PO DAILY PRN Constipation Potassium Chloride 1 dose 08/25/17 18:15 Pharmacy To Dose - Potassium Replacement .XX ASDIRECTED [facility] Quetiapine Fumarate 50 mg 08/25/17 21:00 08/25/17 20:53 Seroquel PO 50 mg BEDTIME [facility] Administration Senna/Docusate Sodium 1 tab 08/25/17 18:00 Senna Plus PO BID PRN Constipation Sodium Chloride 10 ml 08/25/17 13:43 08/25/17 13:54 Saline Flush FLUSH 10 ml ASDIRECTED PRN Administration Keep Vein Open Thiamine HCl 100 mg 08/26/17 09:00 Vitamin B-1 PO DAILY [facility] Topiramate 25 mg 08/25/17 21:00 08/25/17 20:53 Topamax PO 25 mg BID [facility] Administration Discontinued Medications Generic Name Dose Route Start Last Admin Trade Name Freq PRN Reason Stop Dose Admin Famotidine 20 mg 08/25/17 16:36 08/25/17 16:43 Pepcid IVPUSH 08/25/17 16:37 20 mg ONETIME ONE Administration Sodium Chloride 1,000 mls @ 999 mls/hr 08/25/17 13:43 08/25/17 13:51 Normal Saline IV 08/25/17 14:43 999 mls/hr ONETIME ONE Administration Sodium Chloride 1,000 mls @ 999 mls/hr 08/25/17 15:07 08/25/17 15:15 Normal Saline IV 08/25/17 16:07 999 mls/hr ONETIME ONE Administration Thiamine HCl 200 mg/ Sodium 52 mls @ 100 mls/hr 08/25/17 18:02 08/25/17 18:56 Chloride IV 08/25/17 18:32 100 mls/hr ONETIME ONE Administration Sodium Chloride Confirm 08/25/17 18:34 08/25/17 19:09 Normal Saline Administered 08/25/17 18:35 Not Given Dose 50 mls @ as directed .ROUTE .STK-MED ONE Ketorolac Tromethamine 30 mg 08/25/17 13:43 08/25/17 13:54 Toradol IVPUSH 08/25/17 13:44 30 mg ONETIME ONE Administration Lorazepam 1 mg 08/25/17 14:41 08/25/17 14:49 Ativan IVPUSH 08/25/17 14:42 1 mg ONETIME ONE Administration Magnesium Oxide 400 mg 08/25/17 19:00 08/25/17 19:35 Magnesium Oxide PO 08/25/17 23:01 400 mg Q4H [facility] Administration Nicotine 21 mg 08/25/17 19:51 08/25/17 20:53 Habitrol TRDERM 08/25/17 19:52 21 mg ONETIME ONE Administration Ondansetron HCl 4 mg 08/25/17 13:43 08/25/17 13:52 Zofran IVPUSH 08/25/17 13:44 4 mg ONETIME ONE Administration Pantoprazole Sodium 40 mg 08/25/17 18:00 08/25/17 18:46 Protonix Iv .XX 08/25/17 18:01 40 mg ONETIME ONE Administration Quetiapine Fumarate 50 mg 08/25/17 18:13 08/25/17 18:53 Seroquel PO 08/25/17 18:14 50 mg ONETIME ONE Administration Quetiapine Fumarate 50 mg 08/26/17 21:00 Seroquel PO BEDTIME [facility] Topiramate 25 mg 08/26/17 09:00 Topamax PO BID [facility] Topiramate 25 mg 08/25/17 18:14 08/25/17 18:53 Topamax PO 08/25/17 18:15 25 mg NOW STA Administration Re-Assessment/Re-Exam: 17:10 Patient did begin to experience some anxiety I did order him some Ativan. He was also given Toradol for his headaches and some Zofran for his nausea. He has been resting comfortably since entering the ER. She received 2 L of IV fluid. Due to concerns over his chronic alcohol use with the fact he has not been sober the last 4 year, I am concerned about having serious withdrawal symptoms. I discussed with the patient. He is agreeable to admission. Discussed the case with Dr. Arceo, hospitalist on-call. He agrees to the admission. Departure - Departure Time of Disposition: 17:15 Disposition: Admitted As Inpatient 65 Condition: Fair Clinical Impression: Alcohol abuse Alcohol withdrawal syndrome Qualifiers: Complication of substance-induced condition: with unspecified complication Qualified Code(s): F10.239 - Alcohol dependence with withdrawal, unspecified - Discharge Information - My Orders Last 24 Hours: My Active Orders 08/25/17 13:43 Sodium Chloride 0.9% [Saline Flush] 10 ml FLUSH ASDIRECTED PRN Peripheral IV Insertion Adult [OM.PC] Routine 08/25/17 14:41 CIWAA Assessment [RC] Q1HR 08/25/17 16:36 Sodium Chloride 0.9% [Normal Saline] 1,000 ml IV ONETIME - Assessment/Plan Last 24 Hours: My Active Orders 08/25/17 13:43 Sodium Chloride 0.9% [Saline Flush] 10 ml FLUSH ASDIRECTED PRN Peripheral IV Insertion Adult [OM.PC] Routine 08/25/17 14:41 CIWAA Assessment [RC] Q1HR 08/25/17 16:36 Sodium Chloride 0.9% [Normal Saline] 1,000 ml IV ONETIME
[2017-08-26] MEDS: chlordiazePOXIDE 25 MG Cap PO PRN ×3 (05:04→20:20)
[2017-08-26] MEDS: Famotidine 20 MG Tab PO SCH ×2 (06:54→18:01)
[2017-08-26] MEDS ORDERED: Magnesium Oxide 400 MG Tab PO ONE (08:30)
[2017-08-26] MEDS: Folic Acid 1 MG Tab PO SCH (08:56)
[2017-08-26] MEDS: Potassium Chloride 20 MEQ Tab.ER PO SCH ×2 (08:56→11:53)
[2017-08-26] MEDS: Thiamine 100 MG Tab PO SCH (08:59)
[2017-08-26] MEDS ORDERED: Topiramate 25 MG Tab PO SCH (09:00)
[2017-08-26] MEDS: Lisinopril 20 MG Tab PO SCH (09:00)
[2017-08-26] MEDS: Hydrochlorothiazide 12.5 MG Cap PO SCH (09:01)
[2017-08-26] MEDS: Multivitamins,Therapeutic Tab PO SCH (09:01)
[2017-08-26] MEDS: Topiramate 25 MG Tab PO SCH ×2 (09:02→20:20)
[2017-08-26] MEDS: Nicotine 21 MG/24 Hr Patch TRDERM SCH (09:03)
[2017-08-26] MEDS: LORazepam 2 MG/ML MDV IVPUSH PRN ×2 (16:18→21:32)
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
[2017-08-26] MEDS: QUEtiapine 25 MG Tab PO SCH (20:20)
[2017-08-26] MEDS ORDERED: QUEtiapine 25 MG Tab PO SCH (21:00)
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
[2017-08-27] MEDS: Famotidine 20 MG Tab PO SCH (05:28)
[2017-08-27] MEDS ORDERED: HYDROmorphone 0.5 MG/0.5 ML SYRINGE IVPUSH PRN (07:34)
[2017-08-27] MEDS ORDERED: FLUoxetine 20 MG Cap PO SCH (09:00)
[2017-08-27] MEDS: Folic Acid 1 MG Tab PO SCH (09:18)
[2017-08-27] MEDS: Lisinopril 20 MG Tab PO SCH (09:18)
[2017-08-27] MEDS: Multivitamins,Therapeutic Tab PO SCH (09:18)
[2017-08-27] MEDS: Thiamine 100 MG Tab PO SCH (09:23)
[2017-08-27] MEDS: Topiramate 25 MG Tab PO SCH (09:23)
[2017-08-27] MEDS: Hydrochlorothiazide 12.5 MG Cap PO SCH (09:27)
[2017-08-27] MEDS: Nicotine 21 MG/24 Hr Patch TRDERM SCH (09:27)
--- NOTE | 2017-08-27 10:26 | CONS ---
CONSULTING PHYSICIAN: Nikhil Ellison LAC DATE OF CONSULTATION: 08/27/2017 ADDENDUM: TIME: 8:22 a.m. RECOMMENDATION: The patient meets ASAM criteria for a level 3.1, clinically managed, low- intensity residential treatment. BILLIE Pelaez and Nikhil Ellison LAC will be working today to find an available bed at any admitting facility. MMODAL /[id number]
--- NOTE | 2017-08-27 12:24 | PCM.DCSUM1 ---
Discharge Summary - Hospital Course Brief History: This is a 42 yo white male with past medical hx/o HTN, Hep C infection, Anxiety, Depression, Poly-substance Abuse and Chronic ETOH Abuse who was brought in by Nikhil Ellison LAC from the clinic for alcohol detoxification. - Discharge Data Discharge Date: 08/27/17 Discharge Disposition: Home, Self-Care 01 Condition: Good - Discharge Diagnosis/Problem(s) (1) Alcohol abuse SNOMED Code(s): 44641711 ICD Code: F10.10 - ALCOHOL ABUSE, UNCOMPLICATED Status: Acute (2) Alcohol withdrawal syndrome SNOMED Code(s): 308160943 ICD Code: F10.239 - ALCOHOL DEPENDENCE WITH WITHDRAWAL, UNSPECIFIED Status : Acute Qualifiers: Complication of substance-induced condition: with unspecified complication Qualified Code(s): F10.239 - Alcohol dependence with withdrawal, unspecified (3) Hypomagnesemia syndrome SNOMED Code(s): 093875800 ICD Code: E83.42 - HYPOMAGNESEMIA Status: Acute (4) Hypokalemia due to inadequate potassium intake SNOMED Code(s): 43671907 ICD Code: E87.6 - HYPOKALEMIA Status: Acute (5) Substance abuse SNOMED Code(s): 23990160 ICD Code: F19.10 - OTHER PSYCHOACTIVE SUBSTANCE ABUSE, UNCOMPLICATED Status : Acute (6) Nicotine dependence SNOMED Code(s): 39357736 ICD Code: F17.200 - NICOTINE DEPENDENCE, UNSPECIFIED, UNCOMPLICATED Status : Acute Qualifiers: Nicotine product type: cigarettes Substance use status: uncomplicated Qualified Code(s): F17.210 - Nicotine dependence, cigarettes, uncomplicated - Patient Summary/Data Operative Procedure(s) Performed: None Complications: None Consults: Consultations 08/25/17 18:02 Consult to Physician [CONS] Routine Consult to Content Production Specialist [CONS] Routine 08/25/17 18:15 Consult for Substance Abuse [CONS] Routine 08/27/17 07:26 Consult to Spiritual Care [CONS] Routine Labs Pending at D/C: None Recommended Follow-up Testing/Procedures: None Planned Operative Procedure(s) after DC: None Hospital Course: Patient was primarily admitted for alcohol detoxification. He carried a long history of alcohol abuse with an underlying depression. He was initially seen at Nikhil Ellison's office for alcohol abuse counseling. But he was not medically cleared and therefore he was brought over to the emergency department for further evaluation and treatment. Upon admission, he was treated primarily with conservative management and placed on CIWA protocol. Slowly, he improved on this regimen. Dr. Alford was consulted for psychiatric evaluation and the patient was put on Prozac 20 mg by mouth daily. Nikhil Ellison was also consulted and she recommended outpatient treatment under her services for now until proper arrangement can be made for possible chemical dependency rehabilitation. Once medically stable, the patient was discharged to home. He was accompanied by his mother who traveled all the way from [place] to be with him. On the day of discharge, he was provided practical counseling about smoking cessation. Unfortunately he was not ready to quit. However reading materials and quit hotline was provided for him when the right time comes for him to finally quit smoking. Patient is expected to follow-up with his primary care in 1 week. - Patient Instructions Diet: Usual Diet as Tolerated Activity: As Tolerated Driving: May Drive Today Showering/Bathing: May Shower Notify Provider of: Fever, Increased Pain, Nausea and/or Vomiting Other/Special Instructions: - Please take new medication as directed. - Follow up with outpatient psych in 2-3 weeks. - Follow up with Nikhil Ellison as scheduled. - If you experience mental health crisis, call 911 or Substance Abuse Counselor right away. - Follow up with your doctor in 1-2 weeks - Discharge Plan Prescriptions/Med Rec: FLUoxetine HCl [Prozac] 20 mg PO DAILY #30 capsule Home Medications: Home Meds Lisinopril/Hydrochlorothiazide [Lisinopril-Hctz 20-12.5 mg Tab] 1 tab PO DAILY 08/25/17 [History] FLUoxetine HCl [Prozac] 20 mg PO DAILY #30 capsule 08/27/17 [Rx] Patient Handouts: Alcohol Use Disorder, Chemical Dependency, Major Depressive Disorder, Adult, [id number], Steps to Quit Smoking, Alcohol Withdrawal, Easy- to-Read Referrals: Taj Barahona [Primary Care Provider] - - Discharge Summary/Plan Comment DC Time >30 min.: Yes (45 mins) Discharge Summary/Plan Comment: Discharge to Home - General Info Date of Service: 08/27/17 Admission Dx/Problem (Free Text: Admission Diagnosis/Problem Admission Diagnosis/Problem Alcohol withdrawal syndrome Subjective Update: Follow Up Functional Status: Reports: Pain Controlled, Tolerating Diet, Ambulating, Urinating. Denies: New Symptoms - Review of Systems General: Denies: Fever, Weakness, Fatigue, Malaise, Chills HEENT: Reports: No Symptoms Pulmonary: Denies: Shortness of Breath, Pleuritic Chest Pain, Cough, Wheezing Cardiovascular: Denies: Chest Pain, Palpitations, Dyspnea on Exertion Gastrointestinal: Reports: Flatus. Denies: Abdominal Pain, Constipation, Decreased Appetite, Diarrhea, Nausea, Vomiting Genitourinary: Reports: No Symptoms Musculoskeletal: Reports: No Symptoms Skin: Denies: Cyanosis, Jaundice, Mottled, Pallor Neurological: Denies: Confusion, Headache, Numbness, Seizure, Syncope, Tingling , Tremors, Trouble Speaking, Difficulty Walking, Weakness, Gait Disturbance Psychiatric: Denies: Confusion, Depression, Mood Lability, Anxiety, Agitation, Cravings, Hallucinations, Suicidal Ideation Systems Review Comment: No significant overnight or acute issues. He slept pretty good. He reports no new complaints. - Patient Data Vitals - Most Recent: Last Vital Signs Temp 37.3 C 08/27/17 08:00 Pulse 59 L 08/27/17 08:00 Resp 14 08/27/17 08:00 BP 120/76 08/27/17 09:18 Pulse Ox 97 08/27/17 08:00 Weight - Most Recent: 89.63 kg I&O - Last 24 hours: Intake & Output 08/26/17 08/27/17 08/27/17 22:59 06:59 14:59 Intake Total 1000 500 Output Total 500 Balance 500 500 Lab Results - Last 24 hrs: Laboratory Results - last 24 hr 08/27/17 08/27/17 Range/Units 05:22 05:22 WBC 4.30 (4.23-9.07) K/mm3 RBC 4.57 L (4.63-6.08) M/mm3 Hgb 15.0 (13.7-17.5) gm/L Hct 42.7 (40.1-51.0) % MCV 93.4 H (79.0-92.2) fl MCH 32.8 H (25.7-32.2) pg MCHC 35.1 (32.2-35.5) g/dl RDW Std Deviation 41.3 (35.1-43.9) fL Plt Count 173 (163-337) K/mm3 MPV 10.2 (9.4-12.3) fl Neut % (Auto) 47.2 (34.0-67.9) % Lymph % (Auto) 37.0 (21.8-53.1) % [place] % (Auto) 11.9 (5.3-12.2) % Eos % (Auto) 3.0 (0.8-7.0) Baso % (Auto) 0.7 (0.1-1.2) % Neut # (Auto) 2.03 (1.78-5.38) K/mm3 Lymph # (Auto) 1.59 (1.32-3.57) K/mm3 [place] # (Auto) 0.51 (0.30-0.82) K/mm3 Eos # (Auto) 0.13 (0.04-0.54) K/mm3 Baso # (Auto) 0.03 (0.01-0.08) K/mm3 Sodium 137 (136-145) mEq/L Potassium 3.5 (3.5-5.1) mEq/L Chloride 106 (98-107) mEq/L Carbon Dioxide 22 (21-32) mEq/L Anion Gap 12.5 (5-15) BUN 12 (7-18) mg/dL Creatinine 0.9 (0.7-1.3) mg/dL Est Cr Clr Drug Dosing 116.16 mL/min Estimated GFR (MDRD) > 60 (>60) mL/min BUN/Creatinine Ratio 13.3 L (14-18) Glucose 118 H (74-106) mg/dL Calcium 8.2 L (8.5-10.1) mg/dL Magnesium 2.0 (1.8-2.4) mg/dl Med Orders - Current: Current Medications Acetaminophen (Tylenol) 650 mg PO Q4H PRN PRN Reason: Pain (Mild 1-3)/fever Hydrocodone Bitart/Acetaminophen ([place] 325-5 Mg) 1 tab PO Q4H PRN PRN Reason: Pain (moderate 4-6) Albuterol/Ipratropium (Duoneb 3.0-0.5 Mg/3 Ml) 3 ml NEB Q4H PRN PRN Reason: Shortness Of Breath/wheezing Bisacodyl (Dulcolax) 5 mg PO DAILY PRN PRN Reason: Constipation Chlordiazepoxide HCl (Librium) 25 mg PO Q8H PRN PRN Reason: Withdrawal Symptoms Last Admin: 08/26/17 20:20 Dose: 25 mg Clonidine HCl (Catapres) 0.1 mg PO Q4H PRN PRN Reason: Agitation Docusate Sodium (Colace) 100 mg PO BID PRN PRN Reason: Constipation Famotidine (Pepcid) 20 mg PO Q12H [facility] Last Admin: 08/27/17 05:28 Dose: 20 mg Fluoxetine HCl (Prozac) 20 mg PO DAILY [facility] Last Admin: 08/27/17 09:18 Dose: 20 mg Folic Acid (Folic Acid) 1 mg PO DAILY [facility] Stop: 08/28/17 09:01 Last Admin: 08/27/17 09:18 Dose: 1 mg Hydralazine HCl (Apresoline) 20 mg IVPUSH Q4H PRN PRN Reason: Hypertension Hydrochlorothiazide (Hydrochlorothiazide) 12.5 mg PO DAILY [facility] Last Admin: 08/27/17 09:27 Dose: 12.5 mg Hydromorphone HCl (Dilaudid) 0.25 mg IVPUSH Q2H PRN PRN Reason: Pain (severe 7-10) Promethazine HCl 12.5 mg/ (Sodium Chloride) 50.5 mls @ 100 mls/hr IV Q6H PRN PRN Reason: Nausea/Vomiting Lisinopril (Prinivil) 20 mg PO DAILY [facility] Last Admin: 08/27/17 09:18 Dose: 20 mg Lorazepam (Ativan) 0 mg IVPUSH Q4H PRN; Protocol PRN Reason: Withdrawal Symptoms Last Admin: 08/26/17 21:32 Dose: 1 mg Lorazepam (Ativan) 2 mg IVPUSH Q4H PRN PRN Reason: Seizures Magnesium Sulfate (Pharmacy To Dose - Magnesium Replacement) 1 dose .XX ASDIRECTED [facility] Metoprolol Tartrate (Lopressor) 5 mg IVPUSH Q4H PRN PRN Reason: Tachycardia Miscellaneous Information (Remove Patch) 1 ea TRDERM DAILY [facility] Last Admin: 08/27/17 09:24 Dose: 1 ea Multivitamins (Thera) 1 each PO DAILY [facility] Last Admin: 08/27/17 09:18 Dose: 1 each Nicotine (Habitrol) 21 mg TRDERM DAILY [facility] Last Admin: 08/27/17 09:27 Dose: Not Given Ondansetron HCl (Zofran) 4 mg IV Q4H PRN PRN Reason: Nausea/Vomiting Polyethylene Glycol (Miralax) 17 gm PO DAILY PRN PRN Reason: Constipation Potassium Chloride (Pharmacy To Dose - Potassium Replacement) 1 dose .XX ASDIRECTED [facility] Quetiapine Fumarate (Seroquel) 50 mg PO BEDTIME [facility] Last Admin: 08/26/17 20:20 Dose: 50 mg Senna/Docusate Sodium (Senna Plus) 1 tab PO BID PRN PRN Reason: Constipation Sodium Chloride (Saline Flush) 10 ml FLUSH ASDIRECTED PRN PRN Reason: Keep Vein Open Last Admin: 08/25/17 13:54 Dose: 10 ml Thiamine HCl (Vitamin B-1) 100 mg PO DAILY [facility] Last Admin: 08/27/17 09:23 Dose: 100 mg Topiramate (Topamax) 25 mg PO BID [facility] Last Admin: 08/27/17 09:23 Dose: 25 mg Discontinued Medications Famotidine (Pepcid) 20 mg IVPUSH ONETIME ONE Stop: 08/25/17 16:37 Last Admin: 08/25/17 16:43 Dose: 20 mg Hydromorphone HCl (Dilaudid) 0.25 mg IVPUSH Q2H PRN PRN Reason: Pain (severe 7-10) Sodium Chloride (Normal Saline) 1,000 mls @ 999 mls/hr IV ONETIME ONE Stop: 08/25/17 14:43 Last Admin: 08/25/17 13:51 Dose: 999 mls/hr Sodium Chloride (Normal Saline) 1,000 mls @ 999 mls/hr IV ONETIME ONE Stop: 08/25/17 16:07 Last Admin: 08/25/17 15:15 Dose: 999 mls/hr Sodium Chloride (Normal Saline) 1,000 mls @ 100 mls/hr IV ONETIME ONE Stop: 08/26/17 02:35 Last Admin: 08/25/17 16:42 Dose: 100 mls/hr Thiamine HCl 200 mg/ Sodium (Chloride) 52 mls @ 100 mls/hr IV ONETIME ONE Stop: 08/25/17 18:32 Last Admin: 08/25/17 18:56 Dose: 100 mls/hr Sodium Chloride (Normal Saline) Confirm Administered Dose 50 mls @ as directed .ROUTE .STK-MED ONE Stop: 08/25/17 18:35 Last Admin: 08/25/17 19:09 Dose: Not Given Ketorolac Tromethamine (Toradol) 30 mg IVPUSH ONETIME ONE Stop: 08/25/17 13:44 Last Admin: 08/25/17 13:54 Dose: 30 mg Lorazepam (Ativan) 1 mg IVPUSH ONETIME ONE Stop: 08/25/17 14:42 Last Admin: 08/25/17 14:49 Dose: 1 mg Magnesium Oxide (Magnesium Oxide) 400 mg PO Q4H [facility] Stop: 08/25/17 23:01 Last Admin: 08/25/17 22:10 Dose: 400 mg Magnesium Oxide (Magnesium Oxide) 800 mg PO ONETIME ONE Stop: 08/26/17 08:31 Last Admin: 08/26/17 09:02 Dose: 800 mg Nicotine (Habitrol) 21 mg TRDERM ONETIME ONE Stop: 08/25/17 19:52 Last Admin: 08/25/17 20:53 Dose: 21 mg Ondansetron HCl (Zofran) 4 mg IVPUSH ONETIME ONE Stop: 08/25/17 13:44 Last Admin: 08/25/17 13:52 Dose: 4 mg Pantoprazole Sodium (Protonix Iv) 40 mg .XX ONETIME ONE Stop: 08/25/17 18:01 Last Admin: 08/25/17 18:46 Dose: 40 mg Potassium Chloride (Klor-Con M20) 40 meq PO Q4H [facility] Stop: 08/26/17 12:31 Last Admin: 08/26/17 11:53 Dose: 40 meq Quetiapine Fumarate (Seroquel) 50 mg PO ONETIME ONE Stop: 08/25/17 18:14 Last Admin: 08/25/17 18:53 Dose: 50 mg Quetiapine Fumarate (Seroquel) 50 mg PO BEDTIME [facility] Topiramate (Topamax) 25 mg PO BID [facility] Topiramate (Topamax) 25 mg PO NOW STA Stop: 08/25/17 18:15 Last Admin: 08/25/17 18:53 Dose: 25 mg - Exam General: Reports: Alert, Oriented, Cooperative, No Acute Distress HEENT: Reports: Pupils Equal, Pupils Reactive, EOMI, Mucous Membr. Moist/[place] Neck: Reports: Supple, Trachea Midline, No JVD Lungs: Reports: Clear to Auscultation, Normal Respiratory Effort Cardiovascular: Reports: Regular Rate, Regular Rhythm GI/Abdominal Exam: Normal Bowel Sounds, Soft, Non-Tender, No Organomegaly, No Distention, No Abnormal Bruit, No Mass (Male) Exam: Deferred Rectal (Males) Exam: Deferred Back Exam: Reports: Normal Inspection, Full Range of Motion Extremities: Normal Inspection, Normal Range of Motion, Non-Tender, No Pedal Edema, Normal Capillary Refill Skin: Reports: Warm, Dry, Intact Neurological: Reports: No New Focal Deficit Psy/Mental Status: Reports: Alert, Normal Affect, Normal Mood *Q Meaningful Use (DIS) - VTE *Q VTE Criteria *Q: - Stroke *Q Stroke Criteria *Q: - AMI *Q AMI Criteria *Q:
[2017-08-27 12:52] VITALS: BP 142/85
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
== END 2017-08-27 13:18 | disposition home or self-care (01) | DRG 773 ==
LOC: JD.ED 12:13 → JD.ICU 17:20
PROVIDERS: ADMIT Internal Medicine; ATTEND Internal Medicine
PROC: HZ2ZZZZ Detoxification Services for Substance Abuse Treatment (ICD-10-PCS; principal; 2017-08-25)
DX: F10.239 Alcohol dependence with withdrawal, unspecified (principal); F10.229 Alcohol dependence with intoxication, unspecified; E83.42 Hypomagnesemia; E87.6 Hypokalemia; Y90.7 Blood alcohol level of 200-239 mg/100 ml; F17.200 Nicotine dependence, unspecified, uncomplicated; I10 Essential (primary) hypertension; F41.9 Anxiety disorder, unspecified; F11.20 Opioid dependence, uncomplicated; F33.3 Major depressive disorder, recurrent, severe with psychotic symptoms; Z79.899 Other long term (current) drug therapy
CPT/HCPCS: 36415; 80048; 80053; 80306; 81001; 83735; 85025; 85610; 85730; 96361; 96374; 96375; 99284; 99285-25; A9270-GY; C9113; G0480; J1885; J2060; J2405; J3411; J7030; J7040; J7050